=== PATIENT | female | born 1940 | race Caucasian/White ===

== ENCOUNTER 2017-05-20 07:12 | Emergency (ER) | payer MEDICARE, OTHER ==
--- NOTE | 2017-05-20 07:30 | EDM.PDOC ---
ED HPI GENERAL MEDICAL PROBLEM - General Chief Complaint: Cardiovascular Problem Stated Complaint: CHEST PAIN Time Seen by Provider: 05/20/17 07:17 Source of Information: Reports: Patient History Limitations: Reports: No Limitations - History of Present Illness INITIAL COMMENTS - FREE TEXT/NARRATIVE: History of present illness: []Patient had her recent colonoscopy and during the procedure she apparently had an arrhythmia and was told to follow-up if she had any problems. Last night about 11 PM after watching a movie she went to bed and felt a palpitation then fell asleep. It recurred 6 this morning lasting a few seconds. She denies any dizziness, chest pain, shortness of breath, lightheadedness or sweating. She has not had a recurrence. Patient is on Synthroid and recently had a dosage change has not had her levels checked since. Review of systems: As per history of present illness and below otherwise all systems reviewed and negative. Past medical history: As per history of present illness and as reviewed below otherwise noncontributory. Surgical history: As per history of present illness and as reviewed below otherwise noncontributory. Social history: No reported history of drug or alcohol abuse. Family history: As per history of present illness and as reviewed below otherwise noncontributory. Physical exam: General: Well developed, well nourished in NAD HEENT: Atraumatic, normocephalic, pupils reactive, negative for conjunctival pallor or scleral icterus, mucous membranes moist, throat clear, neck supple, nontender, trachea midline. Lungs: Clear to auscultation, breath sounds equal bilaterally, chest nontender. Heart: S1S2, regular, negative for clicks, rubs, or JVD. Abdomen: Soft, nondistended, nontender. Negative for masses or hepatosplenomegaly. Negative for costovertebral tenderness. Pelvis: Stable nontender. Genitourinary: Deferred. Rectal: Deferred. Extremities: Atraumatic, negative for cords or calf pain. Neurovascular unremarkable. Neuro: Awake, alert, oriented. Cranial nerves II through XII unremarkable. Cerebellum unremarkable. Motor and sensory unremarkable throughout. Exam nonfocal. Diagnostics: []humidifier attendant shows occasional PVC EKG has PVC otherwise normal sinus rhythm without ischemia. Therapeutics: []Patient was observed had no discomfort in the ED no meds were given. Impression: []PVCs Plan: []Follow-up with PMD possible Holter monitoring Definitive disposition and diagnosis as appropriate pending reevaluation and review of above. - Related Data Allergies Allergy/AdvReac Type Severity Reaction Status Date / Time No Known Allergies Allergy Verified 05/20/17 07:16 Home Meds: Home Meds Aspirin [Eun Chewable Aspirin] 81 mg PO DAILY 03/15/14 [History] Raloxifene [Evista] 60 mg PO DAILY 03/15/14 [History] Calcium Carb & Citrate/Vit D3 [Citracal + D ER] 2 tab PO DAILY 12/14/16 [History ] Levothyroxine Sodium [Levo-T] 75 mcg PO DAILY 12/14/16 [History] Magnesium 250 mg PO DAILY 12/14/16 [History] Multivitamin [Multivitamins] 1 tab PO DAILY 12/14/16 [History] Potassium Chloride 20 meq PO DAILY 12/14/16 [History] Propranolol/Hydrochlorothiazid [Propranolol-HCTZ 80-25 MG] 1 tab PO DAILY [History] Past Medical History HEENT History: Reports: Hard of Hearing Other HEENT History: wears glasses, adriana hearing aids, bottom denture Cardiovascular History: Reports: High Cholesterol, Hypertension, Other (See Below) Respiratory History: Reports: None Gastrointestinal History: Reports: GERD, Other (See Below) Other Gastrointestinal History: hx gastric ulcer "years ago", occasional heartburn Genitourinary History: Reports: None 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 Hematologic History: Reports: Blood Transfusion(s) Other Hematologic History: blood transfusion after 1st daughter was born from post bleed - Past Surgical History HEENT Surgical History: Reports: Oral Surgery Female Surgical History: Reports: Breast Biopsy - History Comment History Comment: etoh-rare Social & Family History - Tobacco Use Smoking Status *Q: Never Smoker Second Hand Smoke Exposure: No - Alcohol Use Days Per Week of Alcohol Use: 0 - Recreational Drug Use Recreational Drug Use: No ED ROS GENERAL - Review of Systems Review Of Systems: See Below (See history of present illness) ED EXAM, GENERAL - Physical Exam Exam: See Below (See history of present illness) Course - Vital Signs Last Recorded V/S: Last Vital Signs Temp 36.2 C 05/20/17 07:16 Pulse 59 L 05/20/17 09:17 Resp 18 05/20/17 09:17 BP 137/71 05/20/17 09:17 Pulse Ox 96 05/20/17 09:17 - Orders/Labs/Meds Orders: Active Orders 24 hr Category Date Time Status Saline Lock Insert [OM.PC] Stat Oth 05/20/17 07:30 Ordered Labs: Laboratory Tests 05/20/17 05/20/17 05/20/17 Range/Units 07:35 07:35 07:35 WBC 6.26 (4.0-11.0) K/uL RBC 4.35 (4.30-5.90) M/uL Hgb 13.3 (12.0-16.0) g/dL Hct 38.7 (36.0-46.0) % MCV 89.0 (80.0-98.0) fL MCH 30.6 (27.0-32.0) pg MCHC 34.4 (31.0-37.0) g/dL RDW Std Deviation 42.3 (28.0-62.0) fl RDW Coeff of Susanna 13 (11.0-15.0) % Plt Count 357 (150-400) K/uL MPV 9.30 (7.40-12.00) fL Neut % (Auto) 56.5 (48.0-80.0) % Lymph % (Auto) 33.9 (16.0-40.0) % [place] % (Auto) 7.5 (0.0-15.0) % Eos % (Auto) 1.6 (0.0-7.0) % Baso % (Auto) 0.5 (0.0-1.5) % Neut # (Auto) 3.5 (1.4-5.7) K/uL Lymph # (Auto) 2.1 (0.6-2.4) K/uL [place] # (Auto) 0.5 (0.0-0.8) K/uL Eos # (Auto) 0.1 (0.0-0.7) K/uL Baso # (Auto) 0.0 (0.0-0.1) K/uL Nucleated RBC % 0.0 /100WBC Nucleated RBCs # 0 K/uL Sodium 135 L (136-146) mmol/L Potassium 3.5 (3.5-5.1) mmol/L Chloride 99 (98-110) mmol/L Carbon Dioxide 27 (21-31) mmol/L BUN 12 (6.0-23.0) mg/dL Creatinine 0.7 (0.6-1.5) mg/dL Est Cr Clr Drug Dosing 50.67 mL/min Estimated GFR (MDRD) > 60.0 ml/min Glucose 96 (60-110) mg/dL Calcium 9.2 (8.8-10.8) mg/dL Total Bilirubin 0.4 (0.1-1.5) mg/dL AST 19 (5-40) IU/L ALT 17 (8-54) IU/L Alkaline Phosphatase 61 (40-150) Troponin I < 0.10 (0.0-0.29) NG/ML Total Protein 6.8 (6.0-8.0) g/dL Albumin 3.5 (3.4-4.8) g/dL Globulin 3.3 (2.0-3.5) g/dL Albumin/Globulin Ratio 1.1 L (1.3-2.8) TSH 3rd Generation 4.41 (0.47-5.0) uIU/mL Departure - Departure Time of Disposition: 09:08 Disposition: Home, Self-Care 01 Condition: Good Clinical Impression: PVCs (premature ventricular contractions) Instructions: Palpitations, [id number] Referrals: PCP,None [Primary Care Provider] - Forms: ED Department Discharge Additional Instructions: The following information is given to patients seen in the emergency department who are being discharged to home. This information is to outline your options for follow-up care. We provide all patients seen in our emergency department with a follow-up referral. The need for follow-up, as well as the timing and circumstances, are variable depending upon the specifics of your emergency department visit. If you don't have a primary care physician on staff, we will provide you with a referral. We always advise you to contact your personal physician following an emergency department visit to inform them of the circumstance of the visit and for follow-up with them and/or the need for any referrals to a consulting specialist. The emergency department will also refer you to a specialist when appropriate. This referral assures that you have the opportunity for follow-up care with a specialist. All of these measure are taken in an effort to provide you with optimal care, which includes your follow-up. Under all circumstances we always encourage you to contact your private physician who remains a resource for coordinating your care. When calling for follow-up care, please make the office aware that this follow-up is from your recent emergency room visit. If for any reason you are refused follow-up, please contact the [facility] Emergency Department at and asked to speak to the emergency department charge nurse. [facility] [address] [place] [id number] - My Orders Last 24 Hours: My Active Orders 05/20/17 07:30 Saline Lock Insert [OM.PC] Stat - Assessment/Plan Last 24 Hours: My Active Orders 05/20/17 07:30 Saline Lock Insert [OM.PC] Stat
[2017-05-20 08:10] LABS: CHLORIDE,CL 99 mmol/L (98-110); SODIUM,NA 135 mmol/L (136-146)
--- NOTE | 2017-05-20 08:50 | CR ---
EXAMINATION: Portable chest radiograph. HISTORY: Shortness of breath. FINDINGS: The trachea is midline. Heart is borderline in size. The cardiomediastinal silhouette is within norm al limits. No pulmonary infiltrates, effusions or pneumothorax. Mild interstitial prominence likely accentuated by low lung volumes. Osseous structures appear unremarkable. IMPRESSION: No acute cardiopulmonary process.
[2017-05-20 13:01] VITALS: BP 137/71
== END 2017-05-20 09:17 | disposition home or self-care (01) ==
LOC: MW.ED 07:12
DX: I49.3 Ventricular premature depolarization (principal); I10 Essential (primary) hypertension; E78.00 Pure hypercholesterolemia, unspecified; K21.9 Gastro-esophageal reflux disease without esophagitis; E03.9 Hypothyroidism, unspecified; M17.12 Unilateral primary osteoarthritis, left knee; Z98.890 Other specified postprocedural states; Z79.82 Long term (current) use of aspirin; Z79.899 Other long term (current) drug therapy
CPT/HCPCS: 71010; 71010-26; 80053; 84443; 84484; 85025; 93005; 99282; 99285